=== PATIENT | female | born 1955 | race African-American/Black ===

== ENCOUNTER 2016-09-22 22:55 | Emergency (ER) | payer OTHER ==
[~2016-09-22] VITALS: Ht 160 cm; Wt 106.0 kg
[2016-09-23] MEDS ORDERED: FIORICET 50-301 EACH PO (01:20)
[2016-09-23] MEDS ORDERED: MOTRIN600 MG PO (01:20)
[2016-09-23 02:10] VITALS: BP 151/89
== END 2016-09-23 02:11 | disposition home or self-care (01) ==
LOC: EME 22:55
DX: S09.90XA Unspecified injury of head, initial encounter (principal); S06.0X0A Concussion without loss of consciousness, initial encounter; S99.921A Unspecified injury of right foot, initial encounter; W20.8XXA Other cause of strike by thrown, projected or falling object, initial encounter; I10 Essential (primary) hypertension
CPT/HCPCS: 73630; 99281; 99284

== ENCOUNTER 2017-01-19 11:04 | Emergency (ER) | payer OTHER ==
[~2017-01-19] VITALS: Ht 160 cm; Wt 110.2 kg
[~2017-01-19 11:04] MED LIST: FIORICET 50-301 EACH PO; MOTRIN600 MG PO
[2017-01-19 12:08] LABS: BASOPHIL COUNT 0.1 K/uL (0-0.1); EOSINOPHIL (%) 3.7 % (0-5); EOSINOPHIL COUNT 0.2 K/uL (0-0.3); HEMATOCRIT 41.5 % (36.0-46.0); IMMATURE GRANULOCYTE (%) 0.2 % (0.0-0.7); INSTRUMENT ABS NEUTROPHIL CT 2.6 K/uL; LYMPHOCYTE COUNT 2.3 K/uL (1.0-2.8); MCH 27.3 PG (29.0-34.0); MCHC 31.3 G/DL (30.0-36.0); MEAN PLAT.VOLUME 10.5 uM^3 (9.5-12.4); MONOCYTE (%) 7.8 % (3-12); MONOCYTE COUNT 0.4 K/uL (0-0.8); NEUTROPHIL (%) 46.5 % (45-76); NEUTROPHIL COUNT 2.6 K/uL (1.8-6.4); PLATELET COUNT 284 K/uL (156-360); RBC DIS.WIDTH-SD 44.8 % (39-53); RED BLOOD COUNT 4.77 M/uL (3.80-5.20); WHITE BLOOD COUNT 5.6 K/uL (4.1-10.2)
[2017-01-19 12:21] LABS: CHLORIDE 109 mEq/L (99-109); POTASSIUM 4.2 mEq/L (3.7-5.4); SODIUM 143 mEq/L (136-147)
[2017-01-19 12:23] LABS: GLUCOSE 99 mg/dL (70-99)
[2017-01-19 12:24] LABS: ANION GAP 8 MEQ/L (2-14)
[2017-01-19 12:27] LABS: GFR ESTIMATE (CALCULATED) > 59 mL/min/
[2017-01-19 12:28] LABS: UREA NITROGEN (BUN) 17 mg/dL (9-23)
[2017-01-19 12:29] LABS: TROP-I INTERPRETATION NEGATIVE; TROPONIN-I < 0.01 ng/mL (0.0-0.30)
[2017-01-19] MEDS ORDERED: FIORICET 50-301 EAC1 PO (13:42)
[2017-01-19 14:01] VITALS: BP 151/86
== END 2017-01-19 14:02 | disposition home or self-care (01) ==
LOC: EME 11:04
PROVIDERS: Emergency Medicine
DX: R51 Headache (principal); R11.0 Nausea; R53.1 Weakness
CPT/HCPCS: 70450; 71010; 80048; 84484; 85025; 93005; 99281; 99285; J1885; J7030